=== PATIENT | female | born 1935 | race Caucasian/White ===

== ENCOUNTER 2016-09-19 07:42 | Day surgery (SDC) | payer MEDICARE ==
[~2016-09-19] VITALS: Ht 157.5 cm; Wt 64.3 kg
--- NOTE | ~2016-09-19 | OR ---
PATIENT'S NAME: CAIT JOVEL [facility] AGE: 81 Y [address] ROOM: [place] [address] [place] [facility] [place]: 09/19/2016 OR/Procedure Report DISCHARGE DATE: FAMILY PHYSICIAN: Ria Gonzalez MD ATTENDING PHYSICIAN: Atul Winchester SURGEON: Atul Winchester MD HYDRAULIC SPINNER: DATE OF PROCEDURE: 09/19/2016 PREOPERATIVE DIAGNOSIS: Stress urinary incontinence. POSTOPERATIVE DIAGNOSIS: Stress urinary incontinence. PROCEDURES PERFORMED: Mid urethral tension-free suspension-obturator approach. ANESTHESIA: Regional. INDICATION: This is an 81-year-old lady with severe urinary incontinence. She has failed oral agents. She has urge and stress components. She presents at this time for a mid urethral suspension to address the stress component. She does have a history of a cadaveric renal transplant, with the transplant kidney being the left kidney, and the ureteroneocystostomy being on the left side. We will avoid a retropubic approach. DESCRIPTION OF PROCEDURE: Having obtained her informed consent, the patient was taken to the operating room. She was prepped and draped sterilely and in lithotomy position. A spinal block was placed. The insertion of the adductor into the symphysis was noted and marked. We were level with the clitoris. I then made a 1 cm vaginal incision over the mid urethra. The vaginal mucosa was infiltrated with 1% lidocaine with epinephrine. The dissection was carried back a bit laterally. Using halo needles, the trocars were then brought through the obturator foramen and into the vagina at the level of the mid urethra. I did undertake cystoscopy, verifying position. The bladder was otherwise unremarkable. The orifice was noted on the left side toward the dome. With the trocars in good position, the mesh was attached. The trocars were removed. A curved Horn scissors was insinuated between the mesh and the urethra, ensuring that there was no tension. Excess was trimmed. Antibiotic irrigation was undertaken. The vaginal incision was then closed with a running locking Vicryl. Steri-Strips were used on the stab incisions. PATIENT'S NAME: CAIT JOVEL [facility] AGE: 81 Y [address] ROOM: [place] [address] [place] [facility] [place] [place]: 09/19/2016 OR/Procedure Report DISCHARGE DATE: FAMILY PHYSICIAN: Ria Gonzalez MD ATTENDING PHYSICIAN: Atul Winchester The patient tolerated the procedure well. Blood loss was estimated at 30 mL. All counts were correct. The patient returned to Recovery, awake and in stable condition. ATUL WINCHESTER MD [facility]/modl /[id number] CC: Ria Gonzalez MD d: 09/19/16 1224 t: 10/03/16 1039, OPERATIVE SUMMARY
--- NOTE | ~2016-09-19 | HP ---
PATIENT'S NAME: CAIT JOVEL [facility] AGE: 81 Y [address] ROOM: [place] [address] LOCATION: [facility] ADMIT DATE: 09/11/2016 History & Physical DISCHARGE DATE: FAMILY PHYSICIAN: Ria Gonzalez MD ATTENDING PHYSICIAN: Atul Winchester DATE OF SERVICE: CHIEF COMPLAINT: Stress incontinence. HISTORY OF PRESENT ILLNESS: This is an 81-year-old lady with severe stress incontinence. It is interfering with her quality of life. She presents for a mid urethral suspension. Relevant history is that she is many years status post a cadaveric transplant (1994). She is doing well from that standpoint. Dr. Bell has followed her and made an attempt to proceed conservatively. In fact, she had Contigen injections with no significant improvement. She has considered suspension. She also has urge component. Because of her transplanted kidney, there were concerns regarding a retropubic suspension. A CT scan had been obtained. I do not believe the allograft itself, would be any danger from the needle, but her ureteroneocystostomy would certainly be in the area toward the dome where we occasionally hit quite close to the bladder. Therefore, she is referred for an obturator approach. PAST MEDICAL HISTORY: End-stage renal disease, with a subsequent cadaveric transplant as noted above. On review of the records, and I did do not have a definite etiology for her renal failure back in 1984. Other past history includes hypertension, hypothyroidism, arthritis, meningioma, restless legs syndrome, and elevated cholesterol and lipids. Surgical procedure includes the transplant. She subsequently had a [place] nephrectomy in 2004. She has had appendectomy and lumpectomy. She has had a craniotomy, a LEEP procedure, polypectomy, right hip repair, cholecystectomy, etc. MEDICATIONS: She is on polypharmacy as listed on her MAR. Her medications have been reviewed. ALLERGIES: TO BETADINE, MORPHINE, AND ADHESIVE TAPE. REVIEW OF SYSTEMS: PATIENT'S NAME: CAIT JOVEL [facility] AGE: 81 Y [address] ROOM: [place], [place] [address] LOCATION: [facility] ADMIT DATE: 09/11/2016 History & Physical DISCHARGE DATE: FAMILY PHYSICIAN: Ria Gonzalez MD ATTENDING PHYSICIAN: Atul Winchester Full system review. It was remarkable for arthritic complaints, urinary frequency and urgency with urge and stress incontinence as related to the HPI. Otherwise, she denies any complaints. Importantly, she has no cardiopulmonary issues. By report, her allograft continues to function well over 30 years post transplant. FAMILY HISTORY: Noncontributory. PHYSICAL EXAMINATION: GENERAL: This is a pleasant and appropriate 81-year-old lady, who is in no distress. VITAL SIGNS: Blood pressure is 122/74 with a pulse of 67. Weight is 145 pounds. HEART: Currently regular. LUNGS: Clear. ABDOMINAL EXAM: Reveals well-healed surgical sites. GENITOURINARY AND PELVIC EXAM: Deferred to cystoscopy. I did make sure that she does not have any significant prolapse, which she does not. She is emptying adequately with a residual 60 mL. EXTREMITIES: No clubbing, cyanosis, or edema. IMPRESSION: Mixed urinary incontinence with marked stress incontinence with interference with quality of life as discussed above. PLAN: Mid urethral suspension via an obturator approach. She and her understand the plan as well as the attendant risks and benefits. They have had their questions answered, they wish to proceed. ATUL WINCHESTER MD [facility]/temitope /[id number] D: [id number] T: [id number] HISTORY & PHYSICAL
[~2016-09-19 07:42] MED LIST: ACULAR5 ML OPHTH; ALPHAGAN 05 ML/1 BOT OPHTH; ASCORBIC ACID500 MG PO; ASPIRIN EC81 MG PO; BETIMOL5 ML OPHTH; CALTRATE 600 +1 EAC1 PO; COLACE100 MG PO; DELTASONE2.5 MG PO; FISH OIL 1,2001 EACH PO; FISH OIL300 MG PO; IMURAN50 MG PO; KLOR-CON 1010 MEQ PO; LASIX20 M1 PO; LEVOTHROID (S100 MCG PO; LEVOTHROID (SY25 MCG PO; LOPRESSOR25 MG PO; OSCAL500 MG PO; PEPCID20 MG PO; PRED FORTE 1%5 ML OPHTH; STOOL SOFTENER1 EACH PO; TIMOPTIC 0.5%15 ML OPHTH; TYLENOL EXTRA500 MG PO; VESICARE10 MG PO; VITAMIN D1000 UNIT PO; WOMEN'S DAILY1 EAC3 PO; XALATAN2.5 ML OPHTH; ZOCOR20 M1 PO
[2016-09-19 08:11] LABS: BASOPHIL % 0.6 %; EOSINOPHIL # 0.1 K/uL (0.0-0.5); EOSINOPHIL % 0.7 %; HEMATOCRIT 39.9 % (30.0-46.0); HEMOGLOBIN 12.9 g/dL (10.0-15.0); IMMATURE GRANULOCYTE # 0.1 K/uL (0.0-0.3); IMMATURE GRANULOCYTE % 0.7 %; LYMPHOCYTE # 0.7 K/uL (0.8-4.0); LYMPHOCYTE % 10.3 %; MCH 32.9 pg (27.0-34.0); MCHC 32.3 gm/dL (32.0-36.5); MCV 101.8 fl (83.0-98.0); MONOCYTE # 0.3 K/uL (0.0-1.0); MONOCYTE % 4.4 %; MPV 9.2 fl (9.4-12.4); NEUTROPHIL % 83.3 %; NRBC % 0 /100WBC (0-0.00); PLATELET COUNT 230 K/uL (150-450); RBC 3.92 M/uL (3.00-5.00); RDW-CV 14.3 % (11.9-14.6); WBC 7.2 K/uL (4.0-11.0)
[2016-09-19 08:29] LABS: ALBUMIN 3.4 gm/dL (3.5-5.0); ANION GAP 11.5 (10.0-19.0); POTASSIUM 3.5 mMol/L (3.7-5.1); TOTAL BILIRUBIN 0.3 mg/dL (0.0-1.5); TOTAL PROTEIN 6.6 g/dL (6.0-8.4)
[2016-12-28] MEDS ORDERED: REQUIP0.25 MG PO (17:04)
== END 2016-09-20 12:07 | disposition disaster alternative care site (69) ==
LOC: GSDC 07:42 → GMSU 07:42 → GSDC 09-20 12:07
PROVIDERS: Urology
PROC: 0TSD0ZZ Reposition Urethra, Open Approach (ICD-10-PCS; principal; 2016-09-19)
DX: N39.3 Stress incontinence (female) (male) (principal); I12.0 Hypertensive chronic kidney disease with stage 5 chronic kidney disease or end stage renal disease; N18.6 End stage renal disease; E03.9 Hypothyroidism, unspecified; M19.90 Unspecified osteoarthritis, unspecified site; G25.81 Restless legs syndrome; Z88.5 Allergy status to narcotic agent; Z88.8 Allergy status to other drugs, medicaments and biological substances; Z90.49 Acquired absence of other specified parts of digestive tract; Z98.890 Other specified postprocedural states
CPT/HCPCS: C1771; J1956; J2001; J2405; J7030; J7500; J7512

== ENCOUNTER 2016-12-29 07:27 | Inpatient (IN) | payer MEDICARE ==
[~2016-12-29] VITALS: Ht 154.9 cm; Wt 60.3 kg
--- NOTE | ~2016-12-29 | DS ---
PATIENT'S NAME: CAIT JOVEL [facility] AGE: 81 Y [address] ROOM: [facility] [place], [place] [address] LOCATION: [facility]3 ADMIT DATE: 12/29/2016 Discharge Summary DISCHARGE DATE: 01/03/2017 FAMILY PHYSICIAN: Ria Gonzalez MD ATTENDING PHYSICIAN: Siena Louis REASON FOR ADMISSION: The patient was a scheduled admission for an elective surgical procedure. The surgical procedure was lumbar laminectomy. The patient had presented with low back pain and imaging studies confirmed lumbar spinal stenosis at L3-L4 and L4-L5. TREATMENT RENDERED: The patient was taken to the operating room on December 29, 2016, and she had laminectomy at L3-L4 and L4-L5. Her surgery was uncomplicated. Her postoperative course; she took a little bit of time to recover the feeling in her right leg and said the leg felt frozen. She also had slight plantar flexor weakness, but could dorsiflex quite well with the right foot. The patient was also seen by the hospitalist and started on antihypertensive medicine. Physical Therapy and Occupational Therapy were involved in helping the patient to ambulate. By the 01 of January, she said her legs felt weak, but she was getting better. Her dressing was changed, and the incision was clean, dry, and intact. Arrangements were made for the patient to go to swing bed, and she was transferred on January 03 to [facility]. Arrangements were made for her to be followed up at my next visit to [facility] on January 30, 2017. FINAL DIAGNOSIS: Lumbar spinal stenosis status post lumbar laminectomy at L3- L4 and L4-L5. SIENA LOUIS MD CNO/modl /[id number] d: 01/20/17 0124 t: 01/22/17 2206, DISCHARGE SUMMARY
--- NOTE | ~2016-12-29 | CON ---
PATIENT'S NAME: CAIT JOVEL [facility] AGE: 81 Y [address] ROOM: [place] [address] LOCATION: [facility] ADMIT DATE: 12/29/2016 Consultation DISCHARGE DATE: FAMILY PHYSICIAN: Ria Gonzalez MD ATTENDING PHYSICIAN: Siena Lockett REFERRING PHYSICIAN: Nikita HURT MD CHIEF COMPLAINT: Sinus bradycardia. HISTORY OF PRESENT ILLNESS: The patient is an 81-year-old female with past medical history of hypertension, hyperlipidemia, hypothyroid, history of kidney transplant, on Imuran and chronic steroid, who presents here for laminectomy. The patient had laminectomy today with Dr. Lockett. Laminectomy of L3-L4 and L4-L5 due to lumbar spinal stenosis. The patient tolerated the procedure well. The patient was noted to have sinus bradycardia, heart rate in the 50s on the tele monitor. The patient is currently on Lopressor and reports that recently her Lopressor dose have to be decreased in half by her primary care physician. She reports that it was decreased due to low blood pressure. also reports that the patient usually gets low heart rates after surgery. He reports that her last surgery for her meningioma resection, also the patient was noted during that time to have low heart rate. The patient currently denies any dizziness, chest pain, shortness of breath, abdominal pain, nausea, vomiting, fever, chills, productive cough, or headache. MEDICAL HISTORY: Hypertension, hyperlipidemia, hypothyroidism, chronic steroid use, and renal transplants. SURGICAL HISTORY: 1. Right-sided meningioma excision. 2. Oophorectomy. 3. Laminectomy. 4. Renal transplants. FAMILY HISTORY: Dad had a history of stroke and her mother had a history of coronary artery disease. SOCIAL HISTORY: The patient denies smoking and drinking and lives with her . MEDICATIONS: See MAR. PATIENT'S NAME: MED [facility] AGE: 81 Y [address] ROOM: [place] [address] LOCATION: [facility] ADMIT DATE: 12/29/2016 Consultation DISCHARGE DATE: FAMILY PHYSICIAN: Ria Gonzalez MD ATTENDING PHYSICIAN: Siena Lockett REVIEW OF SYSTEMS: All systems have been reviewed and are negative except for what I mentioned in the HPI. PHYSICAL EXAMINATION: VITAL SIGNS: Temperature 97.8, blood pressure 112/44, pulse of 53, and respiratory rate of 16. GENERAL APPEARANCE: The patient is alert and awake, in no acute distress. CHEST: Clear to auscultation bilaterally. HEAD: Normocephalic, atraumatic. EYES: Extraocular muscles intact. NOSE: No nasal discharge. EARS: No ear discharge. ORAL CAVITY: Moist oral cavity. CHEST: Clear to auscultation bilaterally. HEART: Regular rate and rhythm. No murmurs, rubs, or gallops. ABDOMEN: Soft, nontender, and nondistended. Bowel sounds present. SKIN: Warm to touch. MUSCULOSKELETAL: The patient has left-sided foot drop. PRINTING ASSISTANT: Alert and oriented. Motor and sensory grossly intact with left-sided lower extremity weakness of 4/5. DIAGNOSTIC DATA: EKG shows sinus christopher with heart rates of 50 and left bundle branch block, stable compared to last EKG. ASSESSMENT AND PLAN: 1. Sinus bradycardia, etiology most likely secondary to anesthesia. The patient has a history of bradycardia after surgery per her . Also, the patient is on Lopressor. We will hold Lopressor. The patient's blood pressure is stable and the patient is asymptomatic. The patient might also have underlying sick sinus, as the patient is 81-year- old. We will avoid jinny blocking agents. 2. Chronic steroid use. The patient takes prednisone 7.5 daily because of renal transplant. During her stay, the patient noted to have low blood pressure and becomes asymptomatic. We would suggest the patient to be started on stress dose steroids of hydrocortisone 50 mg t.i.d. 3. Renal transplant. Continue Imuran and prednisone. 4. Hypothyroidism. Continue Synthroid. 5. Hypertension, stable. We will hold Lopressor due to bradycardia. 6. Lumbar stenosis, status post laminectomy of L3-L4 and L4-L5 by Dr. Lockett postoperative day 0. Assessment and plan was discussed with the patient. Greater than 35 minutes was spent for the patient's care. Greater than 50% of that was spent with direct patient's care. The patient and 's questions were answered with PATIENT'S NAME: CAIT JOVEL [facility] AGE: 81 Y [address] ROOM: [place] [address] LOCATION: [facility] ADMIT DATE: 12/29/2016 Consultation DISCHARGE DATE: FAMILY PHYSICIAN: Ria Gonzalez MD ATTENDING PHYSICIAN: Siena Lockett. The case was also discussed with Dr. Lockett. Thank you very much for the consult. ELKINWE MD CRISTINA HURT/temitope /[id number] d: 12/30/16 0202 t: 12/31/16 1233, CONSULTATION REPORT
--- NOTE | ~2016-12-29 | OR ---
PATIENT'S NAME: CAIT JOVEL [facility] AGE: 81 Y [address] ROOM: [address] [place], [place] [address] LOCATION: [facility] ADMIT DATE: 12/29/2016 OR/Procedure Report DISCHARGE DATE: FAMILY PHYSICIAN: Ria Gonzalez MD ATTENDING PHYSICIAN: Siena Lockett SURGEON: Siena Lockett MD ANGER CONTROL COUNSELOR: Temi Campos. DATE OF PROCEDURE: 12/29/2016 PREOPERATIVE DIAGNOSIS: Lumbar spinal stenosis with radiculopathy. POSTOPERATIVE DIAGNOSIS: Lumbar spinal stenosis with radiculopathy. PROCEDURE PERFORMED: 1. Bilateral laminectomy with decompression of neural elements and foraminotomy without diskectomy at L3-4. 2. Bilateral laminectomy with decompression of neural elements and foraminotomy without diskectomy at L4-5. ANESTHESIA: General. ANESTHESIA PROVIDER: Haris Rdz MD. HISTORY: This patient is an 81-year-old female who presented with lower back pain radiating down the left leg. The patient's symptoms were becoming quite incapacitating. Lumbar MRI was performed and it showed spinal stenosis at L3- 4 and L4-5. Surgery was recommended. The above procedure benefits and risks were discussed with the patient; and with her consent, she was brought to the operating room for surgery. PROCEDURE IN DETAIL: The patient was placed in a supine position. Anesthesia was induced. She was intubated. She was carefully placed on the Ruel table taking care to ensure that her kidney transplant was not compressed. The kidney transplant is on the left lower abdominal quadrant area. At the time of positioning, care was taken to ensure that the pressure was not applied to the kidney of the transplanted kidney. Other pressure points were also checked to make sure there was no abnormal pressure on them. The incision was marked out in the midline of her lower back. The whole area was prepped and draped in a sterile fashion. Local anesthesia was infiltrated. The #10 blade was used to open the skin and to deepen the incision to the fascial layer. The Bovie was then used to open the fascia and to deepen the incision to the tips of the spinous processes. The paraspinous muscles were dissected off the spinous processes and laminae of L3, L4, and L5. Self- retaining retractors were placed. Intraoperative x-ray was obtained to verify our levels. The drill was then used to drill down the laminae bilaterally at PATIENT'S NAME: CAIT JOVEL [facility] AGE: 81 Y [address] ROOM: [address] [place] [id number] LOCATION: [facility] ADMIT DATE: 12/29/2016 OR/Procedure Report DISCHARGE DATE: FAMILY PHYSICIAN: Ria Gonzalez MD ATTENDING PHYSICIAN: Siena Lockett L3, L4, and L5. The rongeur was used to remove the spinous processes and laminae together. The ligamentum flavum became visible. The ligamentum flavum was quite thickened and together with the hypertrophied facets was producing stenosis at the 2 levels L3-4 and L4-5. Working very carefully, the central canal was decompressed with [place] rongeurs. There was periodic bleeding, which was brought under control with bipolar cautery and fibrillar. As the decompression progressed, we began to see the nerve roots. The nerve roots at L3-4 and L4-5 were identified and foraminotomies were carried out for them. The disks were also inspected and they were bulging slightly, but not bulging enough to cause significant compression especially with the laminectomy being completed. After satisfactory decompression, the incision was copiously irrigated. Final hemostasis was achieved with fibrillar, cottonoids, and bone wax. The incision was then closed in layers using appropriate suture materials. A sterile dressing was applied. The patient was rolled back to a supine position, her anesthesia was reversed, and she was extubated and taken to the recovery room to complete her recovery. I was present at and performed every aspect of this procedure assisted at some stages by operating room nurses. There were no apparent intraoperative complications. Swabs, needles, and instruments were all accounted for at the end of the case. Estimated blood loss was 500 mL and there was no reason for blood transfusion. I expect the patient to benefit from this procedure. Her footdrop appears to be chronic and it is not likely to improve even with this procedure. MD FABRICIO EVANSO/temitope /[id number] d: 12/30/16 0144 t: 01/13/17 1811, OPERATIVE SUMMARY
[~2016-12-29 07:27] MED LIST changes: +REQUIP0.25 MG PO
--- NOTE | 2016-12-29 18:40 | NUR ---
Significant Event: From PACU at 1730. Repositions with two assist. Dressing C/D/I. No Void. CSM WNL. Follow up:
--- NOTE | 2016-12-30 04:09 | NUR ---
Significant Event: Patient is alert and oriented x 3. VSS on room air. HRs in the mid 40s-50s. On telemetry, no calls. Mepilex dressing to back is clean, dry, and intact. Dangled at the bedside this shift. Tried to get up to bedside commode, unsuccessful as patient stated, "My legs feel too heavy and sleepy." Voiding well. Incontinent of urine at times. Right forearm IV with NS running at 75 ml/hr. Patient is pleasant and cooperative with cares. Follow up:
--- NOTE | 2016-12-30 16:03 | NUR ---
Significant Event: [place] one tab x2 last at 1421. Mepilex dressing dry and intact to back. Hx lt foot drop. C/O heavy feeling in legs. 2 assist transfer to chair. Voids per commode. Telemetry for bradycardia. No BP lt arm. Follow up:
--- NOTE | 2016-12-31 03:53 | NUR ---
Significant Event: Alert/oriented x3. Dressing C/D/I. BP in right right arm only. Telemetry for bradycardia, no calls. CSM WNL. VSS. Saline lock right posterior forearm. 1 void per bedside commode, 1 small incontinence urine. Kendra at 1944, 2311 - has slept most of night. Hxleft foot drop. C/O heaviness both legs. Follow up:
--- NOTE | 2016-12-31 17:09 | NUR ---
Significant Event:[place] one tab x2 last at 1509. Up to recliner/commode one assist and walker. Mepilex dressing dry and intact to back. Hx left foot drop. Telemetry. Heart rates elevate to 140's with activity. Dr. Duke aware. Follow up:
--- NOTE | 2017-01-01 03:43 | NUR ---
Significant Event: Alert/oriented x3. Dressing C/D/I. Tele, no calls. VSS on room air. 1 assist ambulation. 1 [place] at 2102 and 0029. Slept most of night since 2200. Hx left foot drop. C/O heaviness in both legs. BP in right arm only. Saline lock in right posterior forearm. Follow up:
--- NOTE | 2017-01-01 15:14 | NUR ---
Significant Event: UP IN ROOM, TO BR, OUT IN CONDON WITH PHT THER. 1 ASSIST...BACK DRSG D/I. CSM GOOD. HAD [place] 1 TAB X3 LAST AT 1500. TO TAKE SUSPOSITORY THIS AFTERNOON. CARE MANAGEMENT WORKING ON PLACEMENT TO SWINGBED [facility] SUNDAY... Follow up:
--- NOTE | 2017-01-02 04:39 | NUR ---
Significant Event: Alert/oriented x3. 1 assist ambulation. 1 void credited to your shift. VSS. CSM WNL. Hx left foot drop. [place] at 2129. Dressing changed by Dr Lcokett yesterday - C/D/I. Yumiko ALEXANDER. Care Management working on placement to [place] [facility]. Brace on when walking. Follow up:
--- NOTE | 2017-01-02 11:25 | NUR ---
Called [facility] and talked with [facility] Katalina, they can accept as soon as they hear back from insurance precert, have a call in to them to complete precert. I let pt know this morning that is what we are waiting for.
--- NOTE | 2017-01-02 12:53 | NUR ---
Received call back from Katalina at [facility], they heard back from kacie and can accept pt. Called Dr Lockett, he is in [place] and wants to see pt today so said she can go first thing in the morning. Gave Dr Levy Black phone number to accept. Called Katalina back and let her know will be tomorrow, let charge nurse know, let Scar Sheets APRN for hospitalist know, and will let pt and spouse know.
--- NOTE | 2017-01-02 16:42 | NUR ---
Significant Event: Alert and oriented X 3. Room air. SBP 130's and 140's. HR 70's. Foot drop left foot, brace on when up. Chronic numbness in left foot. CSM on right side intact. Up with 1 asssist, gait belt and walker. Patient is stiff while walking. Dressing to back clean dry and intact, edges slightly loose. [place] given X 2 for pain, last given at 1357. Follow up: [facility] bed possibly tomorrow.
--- NOTE | 2017-01-03 04:25 | NUR ---
Patient alert and oriented x3, very pleasant and cooperative, VSS, has foot drop in left foot and some numbness, gait sligtly unsteady does good one assist with walker and gaitbelt pain is under control, dressing is clean dry and intact, Obasi to see her in am and to discharge to swingbed today
--- NOTE | 2017-01-03 09:35 | NUR ---
Called Dr. Lockett to give him doc to doc number for Ria Gonzalez #[phone]. [phone] Called Brandy Warren. Confirmed discharge this am. Faxed orders. Updated [place] that patient was ready to go. Nurse number given. [phone] Followed up with patient and her .
--- NOTE | 2017-01-03 11:09 | NUR ---
Patient alert and oriented X 3. Room air. SBP 130's. HR 70's. Mepilex to lower mid-back changed by Dr. CSM petersen. Denies any numbness or tingling. Patient does have chronic numbness in left foot d/t foot drop. Patient wears an ankle brace during the day. Obasi this a.m. [place] given at 1040 for pain of 5. Up with SBA gait belt and walker. Last bowel movement was 01/01/17. Pleasant and calm with cares.
== END 2017-01-03 11:00 | disposition swing bed (61) | DRG 516 ==
LOC: GPOC 07:27 → G3N 07:27 → GMSU 07:27 → GPOC 08:30 → G3N 15:07 → GPOC 16:00 → G3N 17:15 → GPOC 17:16 → G3N 01-03 11:00
PROVIDERS: ADMIT Neurological Surgery
DX: M48.06 Spinal stenosis, lumbar region (principal); Z94.0 Kidney transplant status; R00.1 Bradycardia, unspecified; D63.1 Anemia in chronic kidney disease; E03.9 Hypothyroidism, unspecified; G25.81 Restless legs syndrome; E78.5 Hyperlipidemia, unspecified; I12.9 Hypertensive chronic kidney disease with stage 1 through stage 4 chronic kidney disease, or unspecified chronic kidney disease; N18.9 Chronic kidney disease, unspecified; R00.0 Tachycardia, unspecified; M21.372 Foot drop, left foot; R32 Unspecified urinary incontinence; K59.00 Constipation, unspecified; Z96.643 Presence of artificial hip joint, bilateral; Z79.52 Long term (current) use of systemic steroids; Z79.82 Long term (current) use of aspirin
CPT/HCPCS: J0131; J0690; J1040; J1100; J2001; J2250; J2405; J2550; J2795; J3010; J7030; J7500; J7512